=== PATIENT | male | born 1970 | race Caucasian/White ===

== ENCOUNTER → 2018-08-17 | Outpatient (CLI) | payer BC ==
[~2018-08-17] MED LIST: 'TENORMIN50 MG PO; ANTIVERT/2525 MG PO; K-DUR 20MEQ20 MEQ PO; PRILOSEC20 MG PO; ZETIA10 MG PO
[2018-08-17 09:25] LABS: ALBUMIN 4.3 gm/dl (3.1-4.5); BUN 17 mg/dl (7-24); CHLORIDE 103 mmol/L (98-107); CHOLESTEROL 80 mg/dL (<200); CREATININE 0.95 mg/dL (0.70-1.30); POTASSIUM 3.9 mmol/L (3.5-5.1); SGOT/AST 27 IU/L (3-35); SGPT/ALT 46 U/L (12-78); SODIUM 139 mmol/L (136-145); TOTAL PROTEIN 7.3 gm/dL (6.4-8.2); TRIGLYCERIDES 164 mg/dl (<150); VLDL CHOLESTEROL 33 mg/dL (6-40)
[2018-08-17 09:26] LABS: ALKALINE PHOSPHATASE 63 U/L (45-117); HDL CHOLESTEROL 33 mg/dl (40-60); LDL CHOLESTEROL 14 mg/dL (9-159)
[2018-08-18 10:10] LABS: CREATININE,URINE 85.4 mg/dL (Not Estab.)
== END | disposition home or self-care (01) ==
LOC: LAB 08:45
PROVIDERS: Nurse Practitioner Family
DX: E11.65 Type 2 diabetes mellitus with hyperglycemia (principal); E78.5 Hyperlipidemia, unspecified

== ENCOUNTER → 2019-02-13 | Outpatient (CLI) | payer BC ==
[2019-02-14 13:04] LABS: CREATININE,URINE 54.4 mg/dL (Not Estab.); MICRO ALBUMIN/CRE RATIO 10.7 (0.0-30.0)
== END | disposition home or self-care (01) ==
LOC: LAB 09:51
PROVIDERS: Nurse Practitioner Family
DX: E11.65 Type 2 diabetes mellitus with hyperglycemia (principal); E78.5 Hyperlipidemia, unspecified

== ENCOUNTER → 2019-05-30 | Outpatient (CLI) | payer BC ==
[2019-05-30 10:53] LABS: ALKALINE PHOSPHATASE 65 U/L (45-117); BUN 21 mg/dl (7-24); CHLORIDE 104 mmol/L (98-107); CHOLESTEROL 107 mg/dL (<200); CREATININE 0.89 mg/dL (0.70-1.30); HDL CHOLESTEROL 35 mg/dl (40-60); LDL CHOLESTEROL 29 mg/dL (9-159); SGOT/AST 22 IU/L (3-35); SGPT/ALT 39 U/L (12-78); SODIUM 138 mmol/L (136-145); TOTAL PROTEIN 7.3 gm/dL (6.4-8.2); TRIGLYCERIDES 217 mg/dl (<150); VLDL CHOLESTEROL 43 mg/dL (6-40)
[2019-05-31 10:06] LABS: CREATININE,URINE 92.2 mg/dL (Not Estab.); MICRO ALBUMIN/CRE RATIO 17.7 (0.0-30.0)
== END | disposition home or self-care (01) ==
LOC: LAB 09:57
PROVIDERS: Nurse Practitioner Family
DX: E78.5 Hyperlipidemia, unspecified (principal); E11.65 Type 2 diabetes mellitus with hyperglycemia

== ENCOUNTER → 2020-12-29 | Outpatient (CLI) | payer BC | END | disposition home or self-care (01) | LOC: US 10:54 | PROVIDERS: ATTEND Nurse Practitioner Primary Care | DX: R22.31 Localized swelling, mass and lump, right upper limb (principal) ==

== ENCOUNTER → 2021-01-12 | Outpatient (CLI) | payer BC | END | disposition home or self-care (01) | LOC: COVID19 11:34 | PROVIDERS: ATTEND Nurse Practitioner Primary Care | DX: U07.1 COVID-19 (principal) ==

== ENCOUNTER → 2022-03-10 | Outpatient (CLI) | payer BC | END | disposition home or self-care (01) | LOC: ORTHO 00:10 | PROVIDERS: ATTEND Orthopaedic Surgery | DX: M25.519 Pain in unspecified shoulder (principal) ==

== ENCOUNTER → 2022-05-10 | Outpatient (CLI) | payer BC ==
[2022-05-10 10:04] LABS: BASO % 0.6 % (0.0-1.0); EOS # 0.2 10*3/uL (0.0-0.4); EOS % 3.5 % (1.0-4.0); HEMATOCRIT 47.7 % (42.0-52.0); LYMPH # 1.6 10*3/uL (1.3-4.4); LYMPH % 29.8 % (27.0-41.0); MEAN CELL VOLUME 86.1 fl (80.0-94.0); MEAN CORPUSCULAR HGB CONC 34.8 g/dl (33.0-37.0); MONO # 0.5 10*3/uL (0.1-1.0); MONO % 9.2 % (3.0-9.0); NEUT # 2.9 10*3/uL (2.3-7.9); NEUT % 56.5 % (47.0-73.0); PLATELET COUNT AUTOMATED 164 10*3/uL (130-400); RED BLOOD COUNT 5.54 10*6/uL (4.50-5.90); RED CELL DISTRI WIDTH 12.1 % (0-14.5); WHITE BLOOD COUNT 5.2 10*3/uL (4.8-10.8)
[2022-05-10 10:23] LABS: CHLORIDE 108 mmol/L (98-107); POTASSIUM 4.3 mmol/L (3.5-5.1); SODIUM 142 mmol/L (136-145)
[2022-05-10 10:44] LABS: ALKALINE PHOSPHATASE 59 U/L (45-117); BUN 12 mg/dl (7-24); CHOLESTEROL 79 mg/dL (<200); CREATININE 0.87 mg/dL (0.70-1.30); FREE T4 0.91 ng/dl (0.76-1.46); LDL CHOLESTEROL 13 mg/dL (9-159); SGOT/AST 28 IU/L (3-35); SGPT/ALT 40 U/L (12-78); TOTAL PROTEIN 7.3 gm/dL (6.4-8.2); TRIGLYCERIDES 138 mg/dl (<150)
[2022-05-11 11:07] LABS: CREATININE,URINE 101.2 mg/dL (Not Estab.)
== END | disposition home or self-care (01) ==
LOC: LAB 09:41
PROVIDERS: Nurse Practitioner Primary Care; ATTEND Nurse Practitioner Family
DX: Z13.220 Encounter for screening for lipoid disorders (principal); E11.65 Type 2 diabetes mellitus with hyperglycemia; E55.9 Vitamin D deficiency, unspecified; E78.5 Hyperlipidemia, unspecified

== ENCOUNTER → 2022-11-10 | Outpatient (CLI) | payer BC | END | disposition home or self-care (01) | LOC: LAB 08:44 | PROVIDERS: ATTEND Nurse Practitioner Primary Care | DX: R80.9 Proteinuria, unspecified (principal) ==